=== PATIENT | female | born 1990 | race Caucasian/White ===

== ENCOUNTER 2017-08-15 02:51 | Emergency (ER) | payer MEDICAID, OTHER ==
[~2017-08-15] VITALS: Ht 170.2 cm; Wt 120.0 kg
[2017-08-15 03:01] VITALS: BP 129/77; PULSE 115; RESP 24; TEMP 98.1; O2SAT 97
[2017-08-15] MEDS ORDERED: SODIUM CHLOR 0.9% 1000 ML INJ 1,000 ML IV SCH (03:25)
[2017-08-15] MEDS ORDERED: SODIUM CHLORIDE 0.9% FLUSH 5 ML FLUSH IV FLUSH PRN (03:30)
[2017-08-15 03:51] LABS: AUTOMATED NEUTROPHIL # 6.7 TH/MM3 (1.8-7.7); BASOPHIL % 0.3 % (0.0-2.0); EOSINOPHIL # 0.2 TH/MM3 (0-0.4); EOSINOPHIL % 1.5 % (0.0-4.0); HEMATOCRIT 40.7 % (35.0-46.0); HEMO FLAGS DIFF FINAL; LYMPH % 37.2 % (9.0-44.0); LYMPHOCYTE # 4.5 TH/MM3 (1.0-4.8); MEAN CELL VOLUME 88.6 FL (80.0-100.0); MEAN CORPUSCULAR HEMOGLOBIN 30.5 PG (27.0-34.0); MEAN CORPUSCULAR HGB CONC 34.4 % (32.0-36.0); MONO % 5.2 % (0.0-8.0); NEUT % 55.8 % (16.0-70.0); PLATELET COUNT 293 TH/MM3 (150-450); RED BLOOD COUNT 4.59 MIL/MM3 (4.00-5.30); RED CELL DISTRIBUTION WIDTH 14.1 % (11.6-17.2)
[2017-08-15 03:52] VITALS: O2SAT 98
--- NOTE | 2017-08-15 03:58 | PD ---
HPI Chief Complaint: Alcohol/Drug Intoxication Time Seen by Provider: 03:25 Travel History International Travel<30 days: No Contact w/Intl Traveler<30days: No Traveled to known affect area: No History of Present Illness HPI Patient is a 26-year-old female presents emergency department for evaluation after found intoxicated. Patient belligerent on arrival requiring restraints, she states only that her father . Mother arrives and states that her father was brutally murdered in the [address] in [place] 5 days ago. Mom states that she was just trying to blow off some steam in coupled with her tonight and was not exactly sure what she did. When I informed mom that she was intoxicated tonight she states that makes sense. Patient otherwise is very limited on history given her belligerent status. [facility] Past Medical History Medical History: Denies Significant Hx Tetanus Vaccination: Unknown Influenza Vaccination: Yes ?: Unknown : 2 Para: 1 Past Surgical History Surgical History: No Previous Surgery Section: Yes Social History Alcohol Use: Yes Tobacco Use: No Substance Use: No Allergies-Medications (Allergen,Severity, Reaction): Coded Allergies: No Known Allergies (Verified Allergy, Unknown, 08/15/17) Unable to Assess (Verified Allergy, Unknown, 08/15/17) Reported Meds & Prescriptions Reported Meds & Active Scripts Active No Active Prescriptions or Reported Medications Review of Systems ROS Limitations: Intoxication, Altered Mental Status Physical Exam Narrative GENERAL: Well-developed well-nourished, belligerent. SKIN: Focused skin assessment warm/dry. No bruises lacerations seen on the remainder of Kg other than the bruise on her left eyebrow. HEAD: Normocephalic, there is a contusion over the right eyebrow, no tsai signs no raccoons eyes. No lacerations. EYES: Pupils equal and round. No scleral icterus. No injection or drainage. ENT: No nasal bleeding or discharge. Mucous membranes pink and moist. NECK: Trachea midline. No JVD. CARDIOVASCULAR: Regular rate and rhythm. No murmur appreciated. RESPIRATORY: No accessory muscle use. Clear to auscultation. Breath sounds equal bilaterally. GASTROINTESTINAL: Abdomen soft, non-tender, nondistended. Hepatic and splenic margins not palpable. MUSCULOSKELETAL: No obvious deformities. No clubbing. No cyanosis. No edema. NEUROLOGICAL: Awake and alert. No obvious cranial nerve deficits. Moving all 4 extremities, will not provide any significant history. PSYCHIATRIC: Appropriate mood and affect; insight and judgment normal. Data Data Last Documented VS Vital Signs Date Time Temp Pulse Resp B/P (MAP) Pulse Ox O2 Delivery O2 Flow Rate FiO2 08/15/17 05:07 82 18 117/78 (91) 95 Room Air 08/15/17 03:01 98.1 Orders Orders Basic Metabolic Panel (Bmp) (08/15/17 03:25) Complete Blood Count With Diff (08/15/17 03:25) Ct Brain W/O Iv Contrast(Rout) (08/15/17 03:25) Blood Glucose (08/15/17 03:25) Ecg Monitoring (08/15/17 03:25) Iv Access Insert/Monitor (08/15/17 03:25) Oximetry (08/15/17 03:25) Sodium Chloride 0.9% Flush (Ns Flush) (08/15/17 03:30) Sodium Chlor 0.9% 1000 Ml Inj (Ns 1000 M (08/15/17 03:25) Drug Screen, Random Urine (08/15/17 03:25) Alcohol (Ethanol) (08/15/17 03:25) Tylenol (Acetaminophen) (08/15/17 03:25) Salicylates (Aspirin) (08/15/17 03:25) Ct Cerv Spine W/O Contrast (08/15/17 ) Restraints Violent (08/15/17 03:30) Ed Urine Pregnancytest Poc (08/15/17 03:49) Lorazepam Inj (Ativan Inj) (08/15/17 04:14) Lorazepam Inj (Ativan Inj) (08/15/17 04:30) Ct Facial Bones W/O Iv Cont (08/15/17 ) Psych Screen (08/15/17 05:47) Labs Laboratory Tests Test 08/15/17 03:35 White Blood Count 12.0 TH/MM3 Red Blood Count 4.59 MIL/MM3 Hemoglobin 14.0 GM/DL Hematocrit 40.7 % Mean Corpuscular Volume 88.6 FL Mean Corpuscular Hemoglobin 30.5 PG Mean Corpuscular Hemoglobin Concent 34.4 % Red Cell Distribution Width 14.1 % Platelet Count 293 TH/MM3 Mean Platelet Volume 8.9 FL Neutrophils (%) (Auto) 55.8 % Lymphocytes (%) (Auto) 37.2 % Monocytes (%) (Auto) 5.2 % Eosinophils (%) (Auto) 1.5 % Basophils (%) (Auto) 0.3 % Neutrophils # (Auto) 6.7 TH/MM3 Lymphocytes # (Auto) 4.5 TH/MM3 Monocytes # (Auto) 0.6 TH/MM3 Eosinophils # (Auto) 0.2 TH/MM3 Basophils # (Auto) 0.0 TH/MM3 CBC Comment DIFF FINAL Differential Comment Blood Urea Nitrogen 9 MG/DL Creatinine 0.68 MG/DL Random Glucose 94 MG/DL Calcium Level 8.7 MG/DL Sodium Level 142 MEQ/L Potassium Level 3.1 MEQ/L Chloride Level 109 MEQ/L Carbon Dioxide Level 21.5 MEQ/L Anion Gap 12 MEQ/L Estimat Glomerular Filtration Rate 104 ML/MIN Salicylates Level 2.0 MG/DL Urine Opiates Screen NEG Acetaminophen Level LESS THAN 2.0 MCG/ML Urine Barbiturates Screen NEG Urine Amphetamines Screen NEG Urine Benzodiazepines Screen NEG Urine Cocaine Screen NEG Urine Cannabinoids Screen NEG Ethyl Alcohol Level 298 MG/DL [facility] Medical Decision Making Medical Screen Exam Complete: Yes Emergency Medical Condition: Yes Differential Diagnosis Head injury, intoxication, neck injury, facial injury, Narrative Course Patient roomed in emergency department, do not appreciate that there is any suicidal tendencies in this patient and mom agrees. She still agreed for a psych screen. This is been ordered. At this time she has been sedated and at 0700 she is still sedated to the point where she is not ready for discharge. Will allow her to continue to sleep it off in the emergency department and on reassessment by the oncoming provider could be discharged if not having any suicidal ideation. Scripts No Active Prescriptions or Reported Meds Ez Murray MD Aug 15, 2017 03:58
[2017-08-15 04:09] LABS: ANION GAP 12 MEQ/L (5-15)
[2017-08-15] MEDS ORDERED: LORazepam 2 MG/ML VIAL ONE (04:14)
[2017-08-15 04:17] LABS: BICARBONATE 21.5 MEQ/L (21.0-32.0); BLOOD UREA NITROGEN 9 MG/DL (7-18); CHLORIDE 109 MEQ/L (98-107); GLOMERULAR FILTRATION RATE 104 ML/MIN (>89); POTASSIUM 3.1 MEQ/L (3.5-5.1); SODIUM (NA) 142 MEQ/L (136-145)
[2017-08-15 04:19] LABS: ACETAMINOPHEN LESS THAN 2.0 MCG/ML (10.0-30.0); ALCOHOL 298 MG/DL (0-5)
[2017-08-15] MEDS ORDERED: LORazepam 2 MG/ML VIAL IV PUSH ONE (04:30)
--- NOTE | 2017-08-15 04:56 | RADRPT ---
EXAM DATE/TIME: 08/15/2017 04:23 [facility] COMPARISON: No previous studies available for comparison. INDICATIONS : Trauma; fall. ETOH. RADIATION DOSE: 56.35 CTDIvol (mGy) MEDICAL HISTORY : Non-responsive. SURGICAL HISTORY : Non-responsive. ENCOUNTER: Initial ACUITY: 1 day PAIN SCALE: Non-responsive LOCATION: cranial TECHNIQUE: Multiple contiguous axial images were obtained of the head. Using automated exposure control and adj ustment of the mA and/or kV according to patient size, radiation dose was kept as low as reasonably a chievable to obtain optimal diagnostic quality images. DICOM format image data is available electro nically for review and comparison. FINDINGS: CEREBRUM: The ventricles are normal for age. No evidence of midline shift, mass lesion, hemorrhage or acute in farction. No extra-axial fluid collections are seen. POSTERIOR FOSSA: The cerebellum and brainstem are intact. The 4th ventricle is midline. The cerebellopontine angle i s unremarkable. EXTRACRANIAL: The visualized portion of the orbits is intact. SKULL: The calvaria is intact. No evidence of skull fracture. CONCLUSION: Negative noncontrast CT Paramjit Anton MD on August 15, 2017 at 4:53 Board Certified Radiologist. This report was verified electronically.
--- NOTE | 2017-08-15 04:57 | RADRPT ---
EXAM DATE/TIME: 08/15/2017 04:24 [facility] COMPARISON: No previous studies available for comparison. INDICATIONS : Trauma; fall. ETOH. RADIATION DOSE: 27.39 CTDIvol (mGy) MEDICAL HISTORY : Non-responsive. SURGICAL HISTORY : Non-responsive. ENCOUNTER: Initial ACUITY: 1 day PAIN SCALE: Non-responsive LOCATION: neck TECHNIQUE: Volumetric scanning of the cervical spine was performed. Multiplanar reconstructions i n the sagittal, coronal and oblique axial planes were performed. Using automated exposure control a nd adjustment of the mA and/or kV according to patient size, radiation dose was kept as low as reason ably achievable to obtain optimal diagnostic quality images. DICOM format image data is available e lectronically for review and comparison. FINDINGS: The sagittal reconstructions demonstrate normal alignment and normal prevertebral soft tissues. The d ens is intact and there is a normal atlantoaxial relationship. The axial images demonstrate that the vertebral bodies and posterior elements are intact. The soft ti ssues are within normal limits. There is no evidence of acute fracture or malalignment. CONCLUSION: Negative trauma CT. Paramjit Anton MD on August 15, 2017 at 4:55 Board Certified Radiologist. This report was verified electronically.
--- NOTE | 2017-08-15 04:59 | RADRPT ---
EXAM DATE/TIME: 08/15/2017 04:25 [facility] COMPARISON: No previous studies available for comparison. INDICATIONS : Trauma; fall. RADIATION DOSE: 26.35 CTDIvol (mGy) MEDICAL HISTORY : Non-responsive. SURGICAL HISTORY : Non-responsive. ENCOUNTER: Initial ACUITY: 1 day PAIN SCORE: Non-responsive LOCATION: facial TECHNIQUE: Volumetric scanning of the facial bones was performed. Using automated exposure control and adjustme nt of the mA and/or kV according to patient size, radiation dose was kept as low as reasonably achiev able to obtain optimal diagnostic quality images. DICOM format image data is available electronicall y for review and comparison. FINDINGS: ORBITS: The orbital and infraorbital osseous structures are intact. The retroconal structures have a normal configuration. No radiopaque foreign bodies are seen. NASAL BONE: The nasal bone and maxillary spine are intact ZYGOMATIC ARCHES: Symmetric without evidence of fracture. SINUSES: The maxillary, ethmoid and frontal sinuses are intact. No air-fluid levels seen. Mild mucosal thicke john is noted in the frontal sinuses, ethmoidal air cells and maxillary sinuses. NASAL CAVITY: The nasal septum is intact and midline. The lacrimal ducts are intact. SOFT TISSUES: No radiopaque foreign bodies seen. There is soft tissue swelling over the left orbit. INTRACRANIAL: No intracranial air seen. CRIBIFORM PLATE: Grossly intact. CONCLUSION: 1. Soft tissue swelling over the left orbit with no acute fracture or malalignment. 2. Mild mucosal thickening in the paranasal sinuses with no air-fluid level. Paramjit Anton MD on August 15, 2017 at 4:56 Board Certified Radiologist. This report was verified electronically.
[2017-08-15 05:07] VITALS: BP 117/78; PULSE 82; RESP 18; O2SAT 95
[2017-08-15 08:20] VITALS: BP 105/51; PULSE 85; RESP 18; O2SAT 98
[2017-08-15 11:02] VITALS: BP 118/66; PULSE 75; RESP 16; O2SAT 98
--- NOTE | 2017-08-15 13:54 | PD ---
Physical Exam Date Seen by Provider: Aug 15, 2017 Time Seen by Provider: 13:50 Narrative The patient was seen initially by Dr. Hui daily as overnight. The patient was brought in under Marchman act after she was intoxicated in morning over her father's recent . The patient is not suicidal or homicidal. Data Data Last Documented VS Vital Signs Date Time Temp Pulse Resp B/P (MAP) Pulse Ox O2 Delivery O2 Flow Rate FiO2 08/15/17 11:02 75 16 118/66 (83) 98 Room Air 08/15/17 03:01 98.1 Orders Orders Basic Metabolic Panel (Bmp) (08/15/17 03:25) Complete Blood Count With Diff (08/15/17 03:25) Ct Brain W/O Iv Contrast(Rout) (08/15/17 03:25) Blood Glucose (08/15/17 03:25) Ecg Monitoring (08/15/17 03:25) Iv Access Insert/Monitor (08/15/17 03:25) Oximetry (08/15/17 03:25) Sodium Chloride 0.9% Flush (Ns Flush) (08/15/17 03:30) Sodium Chlor 0.9% 1000 Ml Inj (Ns 1000 M (08/15/17 03:25) Drug Screen, Random Urine (08/15/17 03:25) Alcohol (Ethanol) (08/15/17 03:25) Tylenol (Acetaminophen) (08/15/17 03:25) Salicylates (Aspirin) (08/15/17 03:25) Ct Cerv Spine W/O Contrast (08/15/17 ) Restraints Violent (08/15/17 03:30) Ed Urine Pregnancytest Poc (08/15/17 03:49) Lorazepam Inj (Ativan Inj) (08/15/17 04:14) Lorazepam Inj (Ativan Inj) (08/15/17 04:30) Ct Facial Bones W/O Iv Cont (08/15/17 ) Psych Screen (08/15/17 05:47) Labs Laboratory Tests Test 08/15/17 03:35 White Blood Count 12.0 TH/MM3 Red Blood Count 4.59 MIL/MM3 Hemoglobin 14.0 GM/DL Hematocrit 40.7 % Mean Corpuscular Volume 88.6 FL Mean Corpuscular Hemoglobin 30.5 PG Mean Corpuscular Hemoglobin Concent 34.4 % Red Cell Distribution Width 14.1 % Platelet Count 293 TH/MM3 Mean Platelet Volume 8.9 FL Neutrophils (%) (Auto) 55.8 % Lymphocytes (%) (Auto) 37.2 % Monocytes (%) (Auto) 5.2 % Eosinophils (%) (Auto) 1.5 % Basophils (%) (Auto) 0.3 % Neutrophils # (Auto) 6.7 TH/MM3 Lymphocytes # (Auto) 4.5 TH/MM3 Monocytes # (Auto) 0.6 TH/MM3 Eosinophils # (Auto) 0.2 TH/MM3 Basophils # (Auto) 0.0 TH/MM3 CBC Comment DIFF FINAL Differential Comment Blood Urea Nitrogen 9 MG/DL Creatinine 0.68 MG/DL Random Glucose 94 MG/DL Calcium Level 8.7 MG/DL Sodium Level 142 MEQ/L Potassium Level 3.1 MEQ/L Chloride Level 109 MEQ/L Carbon Dioxide Level 21.5 MEQ/L Anion Gap 12 MEQ/L Estimat Glomerular Filtration Rate 104 ML/MIN Salicylates Level 2.0 MG/DL Urine Opiates Screen NEG Acetaminophen Level LESS THAN 2.0 MCG/ML Urine Barbiturates Screen NEG Urine Amphetamines Screen NEG Urine Benzodiazepines Screen NEG Urine Cocaine Screen NEG Urine Cannabinoids Screen NEG Ethyl Alcohol Level 298 MG/DL MDM Medical Record Reviewed: Yes Supervised Visit with MARIPOSA: No Narrative Course 26-year-old female presented intoxicated and under him [place] act. The patient's been observed here for rate in 8 hours. She is awake appropriate answers questions. She is refusing any psychiatric screening at this time. She is on her [place] act which I'm lifting at this time. She is instructed to stop drinking alcohol. She is also instructed to return if she develops any changes. Her mother said the bedside states that she lives with her and she'll bring her in of anything changes. Diagnosis Primary Impression: Alcohol intoxication Additional Impression: acute life stressor Referrals: [facility] (Out patient) Additional Instruction: Avoid drinking alcohol. Return if not feeling well or not acting normal. Scripts No Active Prescriptions or Reported Meds Disposition: 01 DISCHARGE HOME Condition: Stable Theo Bhatt MD Aug 15, 2017 13:54
== END 2017-08-15 14:34 | disposition home or self-care (01) ==
LOC: NEPC 02:51
DX: F10.129 Alcohol abuse with intoxication, unspecified (principal)
CPT/HCPCS: 70450; 70486; 72125; 80048; 80307; 84703; 85025; 96361; 96374; 99285; J2060; J7030